=== PATIENT | male | born 1990 | race Caucasian/White ===

== ENCOUNTER 2021-01-15 15:19 | Outpatient (REF) | payer BC, SELFPAY ==
[2021-01-15 16:56] LABS: HCG Quant, Pregnancy < 1 mIU/mL
[2021-01-16 11:22] LABS: Lyme Ab w Rflx to Lyme Confirm Negative (Negative)
[2021-01-17 18:18] LABS: Anaplasma phagocytophilum Negative (Negative); B. miyamotoi PCR Negative (Negative); Babesia divergens/MO-1 Negative (Negative); Babesia duncani Negative (Negative); Babesia microti Negative (Negative); Ehrlichia chaffeensis Negative (Negative); Ehrlichia ewingii/canis Negative (Negative); Ehrlichia muris eauclairensis Negative (Negative)
== END 2021-01-15 15:20 | disposition home or self-care (01) ==
LOC: NCHCN 15:19
PROVIDERS: PCP Internal Medicine; Visit Provider Family Medicine
DX: W57.XXXA Bitten or stung by nonvenomous insect and other nonvenomous arthropods, initial encounter (principal); T14.8XXA Other injury of unspecified body region, initial encounter
CPT/HCPCS: 87798; 84702; 86618

== ENCOUNTER 2023-02-15 13:42 | Outpatient (REF) | payer BC, SELFPAY | END 2023-02-15 13:43 | disposition home or self-care (01) | LOC: NCHCN 13:42 | PROVIDERS: PCP Internal Medicine; Visit Provider Nurse Practitioner Family | DX: J02.9 Acute pharyngitis, unspecified (principal) | CPT/HCPCS: 87070 ==